=== PATIENT | male | born 1990 | race Caucasian/White ===

== ENCOUNTER 2017-01-21 17:38 | Emergency (ER) | payer OTHER ==
[~2017-01-21] VITALS: Ht 175.2 cm; Wt 63.0 kg
== END 2017-01-21 19:54 | disposition home or self-care (01) ==
LOC: ED 17:38
DX: S60.222A Contusion of left hand, initial encounter (principal); F17.200 Nicotine dependence, unspecified, uncomplicated; W22.01XA Walked into wall, initial encounter; Y93.89 Activity, other specified; Y92.9 Unspecified place or not applicable; Y99.9 Unspecified external cause status